=== PATIENT | male | born 1980 | race Caucasian/White ===

== ENCOUNTER 2024-12-22 05:14 | Emergency (ER) | payer OTHER ==
[~2024-12-22] VITALS: Ht 170.2 cm; Wt 109.0 kg
[2024-12-22 05:48] VITALS: O2SAT 96
[2024-12-22] MEDS ORDERED: DIPH25CA83 PO (06:10)
[2024-12-22] MEDS ORDERED: CALA177S9 TP (06:10)
[2024-12-22] MEDS: DIPHENHYDRAMINE 50MG/ML VIAL IM STA (06:28)
[2024-12-22 06:32] VITALS: BP 160/99; PULSE 90; RESP 20; TEMP 36.9; O2SAT 98
== END 2024-12-22 06:34 | disposition home or self-care (01) ==
LOC: ER 05:14
DX: L50.9 Urticaria, unspecified (principal); Z90.49 Acquired absence of other specified parts of digestive tract
CPT/HCPCS: 96372; 99283; J1200; Z7610